=== PATIENT | male | born 1950 | race Caucasian/White ===

== ENCOUNTER 2017-09-26 13:04 | Outpatient (CLI) | payer MEDICARE, BC ==
--- NOTE | 2017-09-26 14:58 | ULT ---
SCROTAL SONOGRAM WITH DUPLEX EVALUATION: HISTORY: Testicular pain after trauma. FINDINGS: The right testicle is 5 cm, and the left is 4.3 cm. Each has a normal appearance with good color and spectral Doppler flow. Minimal increase in the vessels of the left side of the scrotum is apparent without distention upon Valsalva maneuver. IMPRESSION: No significant abnormalities are demonstrated. POS: [facility]
== END 2017-09-26 13:05 | disposition home or self-care (01) ==
LOC: SCSULT 13:04
PROVIDERS: ATTEND Urology
DX: S39.94XA Unspecified injury of external genitals, initial encounter (principal)
CPT/HCPCS: 76870; 93976

== ENCOUNTER 2017-11-01 09:54 | Outpatient (CLI) | payer MEDICARE, BC ==
--- NOTE | 2017-11-01 13:07 | MRI ---
MRI RIGHT ANKLE WITHOUT CONTRAST: HISTORY: S86.0118, rupture of right Achilles tendon. COMPARISON: None. FINDINGS: BONES: No fracture. No malalignment. There is some low-grade edema in the posterior tuberosity of the calc aneus. Small plantar calcaneal spur. LIGAMENTS: AITFL and PITFL are intact. The ATFL is attenuated and likely chronically torn. CFL is intact. Sup erficial and deep deltoid are intact. There is complete rupture of the Achilles tendon 3.8 proximal to the calcaneal insertion. There is s evere tendinosis and interstitial tearing through the proximal and distal fibers. There is a full-th ickness gap of the central 1/3 fibers of the distal Achilles stump. There is a longitudinal split tear of the peroneus brevis at the level of the lateral malleolus. MUSCLES: There is mild edema within the psoas musculature. Mild fatty atrophy throughout the anterior and pos terior compartments as well as lateral compartment. Extensive soft tissue edema. IMPRESSION: 1. Full-thickness rupture of the Achilles tendon 3.5 cm proximal to the calcaneal insertion. There is a gap of approximately 1.5 cm. The proximal stump and distal stump are severe tendinotic. 2. Central delaminating tear of the distal stump of the central 1/3 tendon which is missing. POS: [facility]
== END 2017-11-01 09:55 | disposition home or self-care (01) ==
LOC: TBSIIMAG 09:54
PROVIDERS: ATTEND Family Medicine
DX: S86.011A Strain of right Achilles tendon, initial encounter (principal)

== ENCOUNTER 2018-03-14 10:51 | Outpatient (CLI) | payer MEDICARE, BC ==
[2018-03-14 11:27] LABS: Anion Gap 15 mmol/L (10-20); BUN (Urea Nitrogen) 16 mg/dL (8.4-25.7); Calc. Creatinine Clearance 0 mL/min (70-130); Calcium 9.1 mg/dL (7.8-10.44); Carbon Dioxide 29 mmol/L (23-31); Chloride 105 mmol/L (98-107); Estimated GFR-MDRD 75; Glucose 113 mg/dL (80-115); Potassium 4.5 mmol/L (3.5-5.1); Sodium 144 mmol/L (136-145)
[2018-03-14 11:34] LABS: #Basophils 0.1 thou/uL (0.0-0.2); #Eosinphils 0.1 thou/uL (0.0-0.7); #Lymphocytes 1.5 thou/uL (1.20-3.40); #Monocytes 0.6 thou/uL (0.11-0.59); #Neutrophils 3.4 thou/uL (1.40-6.50); %Eosinophils 1.4 % (0.0-10.0); %Lymphocytes 26.6 % (21.0-51.0); %Monocytes 11.1 % (0.0-10.0); Hemoglobin 14.9 g/dL (14.0-18.0); Mean Corpuscular Hemoglobin 31.3 pg (27.0-31.0); Mean Corpuscular Volume 97.8 fL (78.0-98.0); Mean Platelet Volume 10.5 fL (7.4-10.4); PLT Morphology Comment Appears Decreased; Platelet Count 115 thou/uL (130-400); RBC Distribution Width 14.6 % (11.5-14.5); RBC Morphology Normal; Red Blood Cell (RBC) Count 4.76 mill/uL (4.70-6.10); White Blood Cell (WBC) Count 5.7 thou/uL (4.8-10.8)
[2018-03-14 11:56] LABS: MDiff Complete? YES
--- NOTE | 2018-03-14 12:17 | RAD ---
TWO VIEW CHEST: Indication: Shortness of breath. Comparison: 01-17-17 FINDINGS: Heart is upper normal size. Mild vascular engorgement which appears similar to the prior study. No in filtrate or effusion. IMPRESSION: Heart size is mildly prominent and there is mild vascular engorgement which appears similar to the pr ior study. POS: [facility]
== END 2018-03-14 10:52 | disposition home or self-care (01) ==
LOC: SCSRAD 10:51
PROVIDERS: ATTEND Internal Medicine Cardiovascular Disease
DX: R06.02 Shortness of breath (principal)
CPT/HCPCS: 36415; 71046; 80048; 83880; 85025

== ENCOUNTER 2019-05-22 09:05 | Outpatient (CLI) | payer MEDICARE, BC ==
--- NOTE | 2019-05-22 11:26 | CT ---
CT PULMONARY LUNG SCAN: HISTORY: Nicotine dependence. Current smoker. Shortness of breath. COMPARISON: Chest radiograph March 2018. FINDINGS: Lung screening specific (lung-RADS): Negative. No suspicious pulmonary nodule. BI-RADS category S: Negative. No new or unknown suspicious findings requiring urgent additional evalu ation. Pulmonary incidentals: Scattered sub-4 mm micronodules. No pneumothorax. No effusion. Low-grade bronc hiectasis in lower lobes. Scattered mosaic attenuation likely from chronic small airway disease. Other incidentals: Scattered cardiac coronary arterial stents. Hypoattenuated round focus superior po le left kidney likely a cyst. Multiple bridging anterior osteophytes of the thoracic spine. No acute osseous abnormality. IMPRESSION: 1. Lung RADS category 2: Benign appearance or behavior. Recommend follow-up low dose screening chest CT in 12 months. 2. Lung RADS category S: Negative. No new or unknown suspicious findings requiring urgent additional evaluation. Transcribed Date/Time: 05/22/2019 11:55 AM
== END 2019-05-22 09:06 | disposition home or self-care (01) ==
LOC: CT 09:05
PROVIDERS: ATTEND Family Medicine
DX: F17.210 Nicotine dependence, cigarettes, uncomplicated (principal)
CPT/HCPCS: G0297

== ENCOUNTER 2020-05-15 06:25 | Outpatient (CLI) | payer MEDICARE, BC ==
--- NOTE | 2020-05-15 11:25 | RAD ---
2 VIEWS CHEST: Date: 05/15/2020 COMPARISON: 03/14/2018, 04/21/2020. HISTORY: Preoperative radiograph. FINDINGS: Two views of the chest show an enlarged but stable cardiomediastinal silhouette. There is no evidence of consolidation, mass, or pleural effusion. The bones are unremarkable. IMPRESSION: No evidence of acute cardiopulmonary disease. POS: [facility]
[2020-05-15 12:18] LABS: Hemoglobin 15.2 g/dL (14.0-18.0); Mean Corpuscular HGB CONC 32.3 G/DL (32.0-36.0); Mean Corpuscular Hemoglobin 31.3 PG (27.0-33.0); Mean Corpuscular Volume 96.7 fl (80.0-100.0); Mean Platelet Volume 10.6 fl (7.4-10.4); Platelet Count 132 10x3/uL (130-400); RBC Distribution Width 14.1 % (11.5-14.5); Red Blood Cell (RBC) Count 4.86 10x6/uL (4.40-5.80); White Blood Cell (WBC) Count 5.9 10x3/uL (4.5-11.0)
[2020-05-15 12:19] LABS: Anion Gap 18 mmol/L (10-20); BUN (Urea Nitrogen) 19 mg/dL (8.4-25.7); Calc. Creatinine Clearance 0 mL/min (70-130); Calcium 9.3 mg/dL (7.8-10.44); Carbon Dioxide 28 mmol/L (23-31); Chloride 102 mmol/L (98-107); Glucose 92 mg/dL (80-115); Potassium 4.9 mmol/L (3.5-5.1); Sodium 143 mmol/L (136-145)
[2020-05-15 12:36] LABS: PTT 28.2 sec (22.0-33.0); Prothrombin Time 10.6 sec (9.5-12.1)
[2020-05-15 23:04] LABS: SARS-CoV-2 MS2 Positive; SARS-CoV-2 N Gene Negative; SARS-CoV-2 S Gene Negative; SARS-CoV-2 by NAA Not Detected (NotDetected); SARS-CoV-2 orf1ab Negative
== END 2020-05-15 06:26 | disposition home or self-care (01) ==
LOC: LABBT 06:25
PROVIDERS: ATTEND Thoracic Surgery (Cardiothoracic Vascular Surgery)
DX: Z01.818 Encounter for other preprocedural examination (principal); I25.10 Atherosclerotic heart disease of native coronary artery without angina pectoris; Z20.828 Contact with and (suspected) exposure to other viral communicable diseases
CPT/HCPCS: 71046; 80048; 85027; 85610; 85730; U0003; 87635

== ENCOUNTER 2020-05-15 09:15 | Inpatient (IN) | payer MEDICARE, BC ==
[2020-05-20] MEDS ORDERED: EPINEPHrine 1 MG/ML AMP ONE (06:26)
[2020-05-20] MEDS ORDERED: Albumin 5% 500 ML ONE (06:26)
[2020-05-20] MEDS ORDERED: Bupivacaine PF 0.5% 30 ML VIAL ONE (06:26)
[2020-05-20] MEDS ORDERED: Midazolam HCl 5 mg/5 ml Vial ONE (06:29)
[2020-05-20] MEDS ORDERED: Fentanyl 250 MCG/5 ML VIAL ONE (06:29)
[2020-05-20] MEDS ORDERED: Heparin 10,000 UNITS/1 ML VIAL 30,000 UNITS in Sodium Chloride 0.9% 1,000 ML FS SCH (06:45)
[2020-05-20] MEDS ORDERED: Midazolam HCl 2 mg/2 ml Vial ONE (06:56)
[2020-05-20] MEDS ORDERED: Mannitol 12.5 GM/50 ML ONE (10:26)
[2020-05-20] MEDS ORDERED: Aminocaproic Acid 5 GM/20 ML VIAL ONE (10:26)
[2020-05-20] MEDS ORDERED: PHENYLEPHRINE-NS 100 MCG/ML 10 ML SYRINGE ONE (10:26)
[2020-05-20] MEDS ORDERED: ePHEDrine 50 MG/ML VIAL ONE (10:26)
[2020-05-20] MEDS ORDERED: Magnesium Sulfate 1 GM/2 ML VIAL ONE (10:26)
[2020-05-20] MEDS ORDERED: Potassium Chloride 60 MEQ/30 ML VIAL ONE (10:26)
[2020-05-20] MEDS ORDERED: Heparin 30,000 units/30 ml VIAL ONE (10:26)
[2020-05-20] MEDS ORDERED: Glycopyrrolate 0.2 MG/ML 5 ML SYRINGE ONE (10:26)
[2020-05-20] MEDS ORDERED: Ondansetron PF 4 MG/2 ML Vial ONE (10:26)
[2020-05-20] MEDS ORDERED: Sodium Bicarb 50 MEQ/50 ML Abboject 8.4% SYRINGE ONE (10:26)
[2020-05-20] MEDS ORDERED: Calcium Chloride 1 GM/10 ML Abboject SYRINGE ONE (10:26)
[2020-05-20] MEDS ORDERED: Cardioplegic Soln 1,000 ML BAG ONE (10:26)
[2020-05-20] MEDS ORDERED: Norepinephrine 4 MG/4 ML VIAL ONE (10:26)
[2020-05-20] MEDS ORDERED: Lidocaine 2% PF 100 mg/5 ml Syringe ONE (10:26)
[2020-05-20] MEDS ORDERED: PROPOFOL 200 MG/20 ML VIAL ONE (10:26)
[2020-05-20] MEDS ORDERED: Thrombin 5000 UNITS/5 ML VIAL ONE (10:26)
[2020-05-20] MEDS ORDERED: Heparin 5,000 UNITS/ML VIAL ONE (10:26)
[2020-05-20] MEDS ORDERED: Vecuronium 10 MG VIAL ONE (10:26)
[2020-05-20] MEDS ORDERED: Protamine Sulfate 250 MG/25 ML VIAL ONE (10:26)
[2020-05-20] MEDS ORDERED: Rocuronium Bromide 10 MG/ML (10ML VIAL) ONE (10:26)
[2020-05-20] MEDS ORDERED: Dexamethasone 20 MG/5 ML VIAL ONE (10:26)
[2020-05-20] MEDS ORDERED: Papaverine 60 MG/2 ML VIAL ONE (10:26)
[2020-05-20 11:29] LABS: Actual Bicarbonate (HCO3a) 23.5 mEq/L (22-28); Base Excess (BEa) -3.7 mEq/L (-2.0 to +3.0); CO2 Tension 51.2 mmHg (35.0-45.0); Calcium, Ionized (arterial) 1.22 mmol/L (1.12-1.30); Hemoglobin (Hb) 12.7 g/dL (14.0-18.0); O2 Tension (PaO2), arterial 190.9 mmHg (> 70.0); Potassium - ABG Lab 4.64 mmol/L (3.70-5.30); pH, Arterial 7.28 (7.35-7.45)
[2020-05-20] MEDS ORDERED: Norepinephrine 8 MG/0.9% NS 250 ML IVPB PRN (11:31)
[2020-05-20] MEDS ORDERED: hydrALAZINE 20 MG/ML VIAL SLOW IVP PRN (11:31)
[2020-05-20] MEDS ORDERED: Hetastarch 6% 500 ML 500 ML IVPB PRN (11:31)
[2020-05-20] MEDS ORDERED: Mag-Al 1200 mg/1200 mg/30 ML UDCUP PO PRN (11:31)
[2020-05-20] MEDS ORDERED: Ondansetron PF 4 MG/2 ML Vial IVP PRN (11:31)
[2020-05-20] MEDS ORDERED: Potassium Chloride 20 MEQ/100 ML PREMIX BAG IVPB PRN (11:31)
[2020-05-20] MEDS ORDERED: Bisacodyl 10 MG SUPP PR PRN (11:31)
[2020-05-20] MEDS ORDERED: Post-Op Insulin Drip Protocol IVPB ONE (11:31)
[2020-05-20] MEDS ORDERED: D5 1/2 NS w/20 mEq KCL 1,000 ML IV SCH (11:31)
[2020-05-20] MEDS ORDERED: Bisacodyl 5 MG TAB PO PRN (11:31)
[2020-05-20] MEDS ORDERED: Morphine 2 MG/ML VIAL SLOW IVP PRN (11:31)
[2020-05-20] MEDS ORDERED: Acetaminophen 325 MG TAB PO PRN (11:31)
[2020-05-20] MEDS ORDERED: Magnesium 2 GM/50 ML 2 GM in Premix Bag 1 BAG IVPB SCH (11:31)
[2020-05-20] MEDS ORDERED: Promethazine HCl 25 MG/ML VIAL IM PRN (11:31)
[2020-05-20] MEDS ORDERED: Guaifenesin DM 100-10/5 ML UDCUP PO PRN (11:31)
[2020-05-20] MEDS ORDERED: Fentanyl 100 MCG/2 ML VIAL SLOW IVP PRN (11:31)
[2020-05-20] MEDS ORDERED: Nitroglycerin 50 MG/250 ML BOT 250 ML IVPB PRN (11:31)
--- NOTE | 2020-05-20 11:54 | OP ---
DATE OF PROCEDURE: 05/20/2020 PREOPERATIVE DIAGNOSES: Coronary artery disease/diabetes mellitus/hypercholesterolemia/hypertension/morbid obesity. POSTOPERATIVE DIAGNOSES: Coronary artery disease/diabetes mellitus/hypercholesterolemia/hypertension/morbid obesity. PROCEDURES PERFORMED: Coronary artery bypass grafting x3 - 1. Left internal mammary artery to 1.5 mm mid left anterior descending - good conduit, heavily calcified target. 2. Reverse saphenous vein to 2.5 mm obtuse marginal - good conduit and heavily calcified target. 3. reverse saphenous vein 1.5 mm right coronary artery - good conduit and target. TOOL AND DIE REPAIR: Alok Hill MD ANESTHESIA: General endotracheal, Dr. Mary Gamble. PUMP TIME: 74 minutes. CROSS-CLAMP TIME: 42 minutes. LOW-CORE TEMPERATURE: 34 degrees Celsius. ASSOCIATE DIRECTOR REGULATORY AFFAIRS: Kristi Machado. DRAINS: 24-Armenian chest tubes x2. DRIPS: None. TRANSFUSIONS: None. DESCRIPTION OF PROCEDURE: After consent was obtained, the patient was brought to the operating room, placed in supine position on the operating room table. Appropriate central line and monitors were placed, and general endotracheal anesthesia was induced. Chest, abdomen, and legs were prepped and draped in usual sterile fashion. Greater saphenous vein was harvested from the left lower extremity utilizing an endoscopic technique. Wounds were irrigated and closed in layers. Median sternotomy was performed. Left internal mammary artery was harvested as a pedicle graft. The patient was systemically heparinized. Distal pedicle was divided and infused with papaverine. Thymic fat and pericardium divided with electrocautery. Pericardial stay sutures were placed. Aortic and atrial cannulation was performed. After adequate heparinization, retrograde prime was performed. The patient was placed on cardiopulmonary bypass. Distal targets were marked. Aortic cross-clamp was applied and antegrade sanguineous cardioplegic arrest was obtained. 1 L of antegrade cold [place] cardioplegia was given. Topical cold solution was used. Reverse saphenous vein was anastomosed to distal RCA in end-to-side fashion with running 7-0 Prolene suture. Anastomosis was tested and was hemostatic. Reverse saphenous vein was anastomosed to the OM in an end-to-side fashion with running 7-0 Prolene suture. Anastomosis was tested and was hemostatic. Mammary artery was brought through a window in the pericardium and anastomosed to LAD in an end-to-side fashion with running 7-0 Prolene suture. On release of mammary clamps, good hooding of the anastomosis and good distal flow. Pedicle was secured with interrupted 6-0 Prolene suture. Cross-clamp was removed and partial-occluding clamp placed. Saphenous veins were anastomosed to individual punch sites on the aorta with running 6-0 Prolene suture. Partial-occluding clamp was removed and graft was deaired. Anastomoses were inspected for hemostasis. The OM graft needed stitch for hemostasis. The patient was then warmed and weaned from cardiopulmonary bypass. After resumption of sinus rhythm, good hemodynamics, and temperature greater than 36.5, bypass was discontinued. Transfusion was given. Protamine was then administered. Decannulation was performed and pursestring suture secured. After adequate hemostasis had been obtained in the mediastinum, vancomycin paste was placed on the sternal edges and 24-Armenian chest tubes x2 placed in the mediastinum. The sternum was then closed with #7 wire, 3 in the manubrium and one in the distal sternum. Five zip ties were placed in the body of the sternum. Sternum was treated with platelet-rich plasma. Wires were twisted and buried and zip ties tied and then cut. Wounds were irrigated and treated with platelet-poor plasma and closed in multiple layers. Needle, sponge, and instrument counts were all reported as correct at the end of the procedure. The patient was transferred to the intensive care in stable, critical condition. Job ID: [id number]
[2020-05-20 12:07] LABS: Actual Bicarbonate (HCO3a) 23.6 mEq/L (22-28); Analyzer IN Cardio ER; Base Excess (BEa) -4.9 mEq/L (-2.0 to +3.0); CO2 Tension 58.9 mmHg (35.0-45.0); Calcium, Ionized (arterial) 1.23 mmol/L (1.12-1.30); Carboxyhemoglobin (COHb) 0.7 gm% (0.0-3.0); O2 Tension (PaO2), arterial 84.2 mmHg (> 70.0); Potassium - ABG Lab 4.48 mmol/L (3.70-5.30)
--- NOTE | 2020-05-20 12:08 | RAD ---
EXAM: CHEST ONE VIEW HISTORY: Post open heart surgery COMPARISON: 05/15/2020 FINDINGS: There has been interval postoperative changes related to CABG. Endotracheal tube is noted in place wi th the tip overlying the T3-4 level and appears to be just above the level of the easton. Right subclavian central venous catheter is noted in place with tip overlying the right atrium. Mediastinal drains and left-sided thoracostomy tube are present. Cardiac silhouette is enlarged. There is mild central pulmonary vascular congestion. There is mild widening of the mediastinal structures likely du e to interval postoperative change and accentuation due to portable technique. Mild bibasilar atelectasis is present. No pneumothorax or pleural effusion effusion is appreciated. Hazy density lef t lung base is likely due to overlying soft tissue density. No other interval change. IMPRESSION: 1. Interval postoperative changes related to CABG. 2. Cardiomegaly with mild central pulmonary vascular congestion. 3. Lines and tubes in place. 4. Bibasilar atelectasis.
[2020-05-20 12:12] LABS: Hemoglobin 13.4 g/dL (14.0-18.0); Mean Corpuscular HGB CONC 34.2 g/dL (32.0-36.0); Mean Corpuscular Hemoglobin 33.5 pg (27.0-31.0); RBC Distribution Width 14.1 % (11.5-14.5); Red Blood Cell (RBC) Count 4.01 mill/uL (4.70-6.10); White Blood Cell (WBC) Count 13.8 thou/uL (4.8-10.8)
[2020-05-20] MEDS ORDERED: Albumin 5% 250 ML ONE (12:15)
[2020-05-20] MEDS ORDERED: D5 1/2 NS w/20 mEq KCL 1,000 ML ONE (12:16)
[2020-05-20 12:17] LABS: INR-International Normal Ratio 1.3; PTT 27.5 sec (22.9-36.1); Prothrombin Time 16.5 sec (12.0-14.7)
[2020-05-20] MEDS ORDERED: Dextrose 5% in Water 1,000 ML IV PRN (12:30)
[2020-05-20] MEDS ORDERED: Dextrose 50% Abboject 50 ML SYRINGE SLOW IVP PRN (12:30)
[2020-05-20 12:32] LABS: #Eosinphils 0.1 thou/uL (0.0-0.7); #Lymphocytes 1.9 thou/uL (1.20-3.40); #Neutrophils 10.7 thou/uL (1.40-6.50); %Basophils 0.1 % (0.0-1.0); %Eosinophils 0.6 % (0.0-10.0); %Lymphocytes 14.1 % (21.0-51.0); %Monocytes 7.2 % (0.0-10.0); Mean Platelet Volume 8.2 fL (7.4-10.4); Platelet Count 96 thou/uL (130-400); Platelet Morphology Comment Appears Decreased; RBC Morphology Normal
[2020-05-20] MEDS: Ketorolac Tromethamine 30 MG/ML VIAL IVP SCH ×3 (12:35→23:11)
[2020-05-20 12:36] LABS: Anion Gap 14 mmol/L (10-20); BUN (Urea Nitrogen) 19 mg/dL (8.4-25.7); Calc. Creatinine Clearance 137 mL/min (70-130); Calcium 8.5 mg/dL (7.8-10.44); Carbon Dioxide 23 mmol/L (23-31); Chloride 108 mmol/L (98-107); Glucose 171 mg/dL (80-115); Potassium 4.6 mmol/L (3.5-5.1); Sodium 140 mmol/L (136-145)
[2020-05-20] MEDS: HUMULIN R 100 UNITS in Sodium Chloride 0.9% 100 ML IVPB SCH ×2 (13:53→23:14)
[2020-05-20 15:36] LABS: Actual Bicarbonate (HCO3a) 24.9 mEq/L (22-28); Base Excess (BEa) -3.2 mEq/L (-2.0 to +3.0); CO2 Tension 57.9 mmHg (35.0-45.0); Calcium, Ionized (arterial) 1.19 mmol/L (1.12-1.30); Carboxyhemoglobin (COHb) 1.3 gm% (0.0-3.0); Hemoglobin (Hb) 13.7 g/dL (14.0-18.0); Potassium - ABG Lab 4.55 mmol/L (3.70-5.30); pH, Arterial 7.25 (7.35-7.45)
[2020-05-20 15:37] LABS: ALV-art Gradient 144.825 mmHg (0-20)
[2020-05-20 15:41] LABS: ALV-art Gradient 269.975 mmHg (0-20); Puncture Site Arterial Line; pH, Arterial 7.22 (7.35-7.45)
[2020-05-20] MEDS: Pregabalin 50 MG CAP PO SCH ×2 (16:06→20:18)
[2020-05-20] MEDS: CEFAZOLIN 2 GM in Premix Bag 1 BAG IVPB SCH ×2 (16:11→23:11)
[2020-05-20 17:46] LABS: Hemoglobin 13.7 g/dL (14.0-18.0)
[2020-05-20 17:55] LABS: Potassium 4.6 mmol/L (3.5-5.1)
[2020-05-20 19:22] LABS: Actual Bicarbonate (HCO3a) 20.4 mEq/L (22-28); Base Excess (BEa) -3.6 mEq/L (-2.0 to +3.0); CO2 Tension 33.7 mmHg (35.0-45.0); Calcium, Ionized (arterial) 1.13 mmol/L (1.12-1.30); Carboxyhemoglobin (COHb) 0.9 gm% (0.0-3.0); Hemoglobin (Hb) 13.5 g/dL (14.0-18.0); O2 Tension (PaO2), arterial 85.7 mmHg (> 70.0); Potassium - ABG Lab 4.26 mmol/L (3.70-5.30)
[2020-05-20 19:25] LABS: ALV-art Gradient 157.375 mmHg (0-20); Puncture Site Arterial Line
[2020-05-20] MEDS: Famotidine/PF 20 mg/2ml Vial SLOW IVP SCH (20:18)
[2020-05-20] MEDS: Fentanyl 100 MCG/2 ML VIAL SLOW IVP PRN (22:30)
[2020-05-21] MEDS: Fentanyl 100 MCG/2 ML VIAL SLOW IVP PRN (03:17)
[2020-05-21 05:18] LABS: #Lymphocytes 0.8 thou/uL (1.20-3.40); #Monocytes 1.3 thou/uL (0.11-0.59); #Neutrophils 10.8 thou/uL (1.40-6.50); %Eosinophils 0.1 % (0.0-10.0); %Lymphocytes 6.5 % (21.0-51.0); %Neutrophils 83.4 % (42.0-75.0); Hemoglobin 13.6 g/dL (14.0-18.0); Mean Corpuscular HGB CONC 33.2 g/dL (32.0-36.0); Mean Corpuscular Hemoglobin 33.2 pg (27.0-31.0); Mean Corpuscular Volume 99.9 fL (78.0-98.0); Mean Platelet Volume 8.9 fL (7.4-10.4); Platelet Count 109 thou/uL (130-400); RBC Distribution Width 14.3 % (11.5-14.5); Red Blood Cell (RBC) Count 4.11 mill/uL (4.70-6.10); White Blood Cell (WBC) Count 12.9 thou/uL (4.8-10.8)
[2020-05-21 05:23] LABS: Anion Gap 15 mmol/L (10-20); BUN (Urea Nitrogen) 24 mg/dL (8.4-25.7); Calc. Creatinine Clearance 120 mL/min (70-130); Carbon Dioxide 22 mmol/L (23-31); Chloride 108 mmol/L (98-107); Glucose 124 mg/dL (80-115); Sodium 140 mmol/L (136-145)
[2020-05-21] MEDS: Ketorolac Tromethamine 30 MG/ML VIAL IVP SCH ×3 (05:25→17:32)
[2020-05-21] MEDS: Pregabalin 50 MG CAP PO SCH ×3 (07:43→21:46)
[2020-05-21] MEDS: CEFAZOLIN 2 GM in Premix Bag 1 BAG IVPB SCH (07:55)
[2020-05-21] MEDS: Famotidine/PF 20 mg/2ml Vial SLOW IVP SCH ×3 (07:57→21:49)
[2020-05-21] MEDS: Fish Oil 1,000 MG CAP PO SCH ×2 (07:59→08:00)
[2020-05-21] MEDS: Magnesium 2 GM/50 ML 2 GM in Premix Bag 1 BAG IVPB SCH (08:02)
--- NOTE | 2020-05-21 08:13 | RAD ---
EXAM: Single view of the chest HISTORY: Status post open heart surgery COMPARISON: 05/20/2020 FINDINGS: Single view of the chest shows an enlarged but stable cardiomediastinal silhouette. The pa tient is status post sternotomy. The endotracheal tube is been removed. The central venous catheter is unchanged in position. Opacity is seen in the left lung base which may represent a pleural effusi on and adjacent atelectasis versus infiltrate. Degenerative changes are seen in the spine. IMPRESSION: Small left pleural effusion with adjacent atelectasis versus infiltrate.
[2020-05-21] MEDS: Aspirin 325 MG TAB PO SCH (08:20)
[2020-05-21] MEDS ORDERED: FLU VACC QS2020-21(65YR UP)/PF 240 MCG/0.7 ML SYRINGE IM ONE (09:00)
[2020-05-21] MEDS: HYDROcodone/Acetaminophen 5/325 mg Tablet PO PRN ×2 (11:33→17:33)
[2020-05-21] MEDS ORDERED: Furosemide 40 MG/4 ML VIAL SLOW IVP SCH (15:15)
[2020-05-22] MEDS: Ketorolac Tromethamine 30 MG/ML VIAL IVP SCH ×2 (00:42→05:35)
[2020-05-22] MEDS: HYDROcodone/Acetaminophen 5/325 mg Tablet PO PRN ×3 (03:47→17:03)
[2020-05-22 04:48] LABS: #Monocytes 1.2 thou/uL (0.11-0.59); #Neutrophils 8.9 thou/uL (1.40-6.50); %Basophils 0.1 % (0.0-1.0); %Eosinophils 0.3 % (0.0-10.0); %Lymphocytes 8.6 % (21.0-51.0); %Monocytes 11.1 % (0.0-10.0); %Neutrophils 79.9 % (42.0-75.0); Hemoglobin 12.3 g/dL (14.0-18.0); Mean Corpuscular HGB CONC 33.3 g/dL (32.0-36.0); Mean Corpuscular Hemoglobin 33.2 pg (27.0-31.0); Mean Corpuscular Volume 99.8 fL (78.0-98.0); Mean Platelet Volume 8.7 fL (7.4-10.4); Platelet Count 96 thou/uL (130-400); RBC Distribution Width 14.5 % (11.5-14.5); White Blood Cell (WBC) Count 11.1 thou/uL (4.8-10.8)
[2020-05-22 04:54] LABS: Anion Gap 12 mmol/L (10-20); BUN (Urea Nitrogen) 31 mg/dL (8.4-25.7); Calc. Creatinine Clearance 0 mL/min (70-130); Carbon Dioxide 27 mmol/L (23-31); Chloride 101 mmol/L (98-107); Glucose 131 mg/dL (80-115); Sodium 135 mmol/L (136-145)
[2020-05-22] MEDS ORDERED: diphenhydrAMINE 25 MG CAP PO PRN (08:15)
[2020-05-22] MEDS ORDERED: Milk Of Magnesia 30 ML UDCUP PO PRN (08:15)
[2020-05-22] MEDS ORDERED: Bisacodyl 5 MG TAB PO PRN (08:15)
[2020-05-22] MEDS ORDERED: Nitroglycerin 0.4 MG TAB (25 Tab Bottle) SL PRN (08:15)
[2020-05-22] MEDS ORDERED: Bisacodyl 10 MG SUPP PR PRN (08:15)
[2020-05-22] MEDS ORDERED: Guaifenesin DM 100-10/5 ML UDCUP PO PRN (08:15)
[2020-05-22] MEDS ORDERED: Mineral Oil ENEMA PR PRN (08:15)
[2020-05-22] MEDS ORDERED: Mag-Al 1200 mg/1200 mg/30 ML UDCUP PO PRN (08:15)
[2020-05-22] MEDS ORDERED: Zolpidem Tartrate 5 MG TAB PO PRN (08:15)
[2020-05-22] MEDS: Pregabalin 50 MG CAP PO SCH ×3 (08:32→20:50)
[2020-05-22] MEDS: Aspirin 325 MG TAB PO SCH (08:37)
[2020-05-22] MEDS: Fish Oil 1,000 MG CAP PO SCH (08:37)
[2020-05-22] MEDS: Magnesium 2 GM/50 ML 2 GM in Premix Bag 1 BAG IVPB SCH (08:39)
--- NOTE | 2020-05-22 09:17 | RAD ---
PORTABLE CHEST: HISTORY: Postop sternotomy followup. CCU followup. COMPARISON: 05/21/2020. FINDINGS/IMPRESSION: Cardiomegaly with sternotomy changes. Central line overlies the SVC. Mild vascular congestion. No confluent infiltrate or significant effusion. No acute interval change noted. POS: [facility]
[2020-05-22] MEDS: Furosemide 40 MG TAB PO SCH (10:15)
[2020-05-22] MEDS: Insulin Regular 300 UNITS/3 ML VIAL SC PRN ×2 (11:47→17:37)
[2020-05-22] MEDS: Diltiazem HCl 125 MG, Admixture Fee 1 EACH in Sodium Chloride 0.9% 100 ML IVPB SCH (20:44)
[2020-05-23 04:17] LABS: Anion Gap 12 mmol/L (10-20); BUN (Urea Nitrogen) 32 mg/dL (8.4-25.7); Calc. Creatinine Clearance 0 mL/min (70-130); Calcium 8.5 mg/dL (7.8-10.44); Carbon Dioxide 28 mmol/L (23-31); Chloride 101 mmol/L (98-107); Glucose 160 mg/dL (80-115); Potassium 5.3 mmol/L (3.5-5.1); Sodium 136 mmol/L (136-145)
[2020-05-23] MEDS: HYDROcodone/Acetaminophen 5/325 mg Tablet PO PRN ×2 (05:20→22:21)
[2020-05-23] MEDS: Insulin Regular 300 UNITS/3 ML VIAL SC PRN ×4 (05:57→22:20)
[2020-05-23] MEDS ORDERED: Digoxin 0.5 MG/2 ML AMP SLOW IVP SCH ×3 (07:15→22:00)
[2020-05-23] MEDS: Aspirin 325 MG TAB PO SCH (07:50)
[2020-05-23] MEDS: Fish Oil 1,000 MG CAP PO SCH (07:50)
[2020-05-23] MEDS: Diltiazem HCl 125 MG, Admixture Fee 1 EACH in Sodium Chloride 0.9% 100 ML IVPB SCH (07:50)
[2020-05-23] MEDS: Furosemide 40 MG TAB PO SCH (07:51)
[2020-05-23] MEDS: Pregabalin 50 MG CAP PO SCH ×3 (08:00→22:23)
[2020-05-23] MEDS: Enoxaparin Sodium 40 MG/0.4 ML SYRINGE SC SCH (09:51)
[2020-05-23] MEDS ORDERED: Amiodarone 150 MG, Admixture Fee 1 EACH in Dextrose 5% in Water 100 ML IVPB SCH (10:30)
[2020-05-23] MEDS: Amiodarone 450 MG, Admixture Fee 1 EACH in Dextrose 5% in Water 250 ML IVPB SCH (10:31)
[2020-05-24 05:24] LABS: Anion Gap 15 mmol/L (10-20); BUN (Urea Nitrogen) 34 mg/dL (8.4-25.7); Calc. Creatinine Clearance 113 mL/min (70-130); Calcium 8.5 mg/dL (7.8-10.44); Carbon Dioxide 27 mmol/L (23-31); Chloride 102 mmol/L (98-107); Glucose 136 mg/dL (80-115); Sodium 139 mmol/L (136-145)
[2020-05-24] MEDS: Insulin Regular 300 UNITS/3 ML VIAL SC PRN ×2 (06:09→11:29)
[2020-05-24] MEDS: HYDROcodone/Acetaminophen 5/325 mg Tablet PO PRN ×2 (06:36→20:53)
[2020-05-24] MEDS: Pregabalin 50 MG CAP PO SCH ×3 (08:03→20:54)
[2020-05-24] MEDS: Fish Oil 1,000 MG CAP PO SCH (08:03)
[2020-05-24] MEDS: Enoxaparin Sodium 40 MG/0.4 ML SYRINGE SC SCH (08:03)
[2020-05-24] MEDS: Aspirin 325 MG TAB PO SCH (08:03)
[2020-05-24] MEDS: Furosemide 40 MG TAB PO SCH (08:03)
[2020-05-24] MEDS: Metoprolol Tartrate 25 MG TAB PO SCH ×2 (08:03→20:54)
[2020-05-25] MEDS: Enoxaparin Sodium 40 MG/0.4 ML SYRINGE SC SCH (08:11)
[2020-05-25] MEDS: Pregabalin 50 MG CAP PO SCH ×3 (08:11→21:14)
[2020-05-25] MEDS: Metoprolol Tartrate 25 MG TAB PO SCH ×2 (08:11→21:16)
[2020-05-25] MEDS: Aspirin 325 MG TAB PO SCH (08:11)
[2020-05-25] MEDS: Furosemide 40 MG TAB PO SCH (08:11)
[2020-05-25] MEDS: Fish Oil 1,000 MG CAP PO SCH (08:11)
--- NOTE | 2020-05-25 11:37 | CON ---
DATE OF CONSULTATION: REQUESTING PHYSICIAN: Candelario Blum MD REASON FOR CONSULTATION: Atrial fibrillation and flutter. HISTORY OF PRESENT ILLNESS: This is a 69-year-old gentleman with history of morbid obesity, hypertension, hypercholesterolemia, as well as diabetes, who had coronary artery bypass graft surgery earlier on the May 20. On the May 22, he was noted to go into atrial fibrillation with an occasional periods of organization to atrial flutter. He has been treated with amiodarone. He is not having oral anticoagulation at this point. We are asked to see him for evaluation. PAST MEDICAL HISTORY: As above. Coronary artery disease, hypertension, diabetes, obesity, and hypercholesterolemia. CURRENT MEDICATIONS: 1. Sayre. 2. Acetaminophen. 3. Amiodarone. 4. Aspirin. 5. Furosemide. 6. Hydralazine. 7. Pantoprazole. ALLERGIES: HE HAS ALLERGIES TO SIMVASTATIN, ROSUVASTATIN, PRAVASTATIN, AND VYTORIN. REVIEW OF SYSTEMS: Comprehensive review of systems is otherwise unremarkable. In particular, he has no fevers; chills; nausea; vomiting; diarrhea; change in hearing, taste, vision, or smell; abdominal discomfort, chest discomfort; ataxia; depression; and anxiety. PHYSICAL EXAMINATION: GENERAL: He is sitting in no acute distress. VITAL SIGNS: Blood pressure is 113/60 and heart rate is 76 and irregular. NECK: Reveals no increased JVD. HEART: Irregularly irregular. Normal S1 and S2. LUNGS: Clear to auscultation. ABDOMEN: Soft and nontender. EXTREMITIES: No clubbing or cyanosis. He does appear to have some edema. LABORATORY DATA: Hematocrit is 39 and his creatinine is 1.28. IMPRESSION: Postop atrial fibrillation and flutter, treated with amiodarone. RECOMMENDATIONS: Mr. Garcia has postop atrial fibrillation and flutter. He has an elevated CHADS-VASc score. At this point, he has been in this arrhythmia for greater than 48 hours. Given his elevated CHADS-VASc score, we would recommend oral anticoagulant therapy at least in the short to medium term. This may simply be postop atrial fibrillation, which may resolve over some time of treatment with amiodarone. If it does not resolve with amiodarone, then cardioversion would be reasonable. Radiofrequency ablation to target his atrial flutter may be helpful; however, he will be left with atrial fibrillation. He will need a JELENA prior to that type of procedure. My recommendations at the current time would be to treat him with amiodarone as you are doing. We will initiate oral anticoagulant therapy. If he needs a cardioversion, it can be after three weeks of anticoagulant therapy or after JELENA. If he continues to have atrial arrhythmias, after he has recovered from his bypass surgery, then radiofrequency ablation of course be fairly reasonable for him. Job ID: [id number]
[2020-05-25] MEDS: Amiodarone 450 MG, Admixture Fee 1 EACH in Dextrose 5% in Water 250 ML IVPB SCH (16:30)
[2020-05-25] MEDS: HYDROcodone/Acetaminophen 5/325 mg Tablet PO PRN ×2 (16:36→21:16)
--- NOTE | 2020-05-25 18:44 | EKG ---
Test Reason : STAT Blood Pressure : / mmHG Vent. Rate : 139 BPM Atrial Rate : 139 BPM P-R Int : 176 ms QRS Dur : 080 ms QT Int : 296 ms P-R-T Axes : 000 060 237 degrees QTc Int : 450 ms Sinus tachycardia Abnormal ECG When compared with ECG of 20-MAY-2020 12:11, (Unconfirmed) Vent. rate has increased BY 68 BPM Minimal criteria for Inferior infarct are no longer Present T wave inversion now evident in Inferior leads Nonspecific T wave abnormality no longer evident in Anterior leads Confirmed by TESSA NELSON, DR. Oneal ([id number]) on 05/25/2020 6:44:20 PM Referred By: GEOFFREY Confirmed By:DR. Jm ZARATE MD
[2020-05-26] MEDS: Amiodarone 200 MG TAB PO SCH ×2 (09:14→21:49)
[2020-05-26] MEDS: Fish Oil 1,000 MG CAP PO SCH (09:14)
[2020-05-26] MEDS: Pregabalin 50 MG CAP PO SCH ×3 (09:15→21:48)
[2020-05-26] MEDS: Aspirin 325 MG TAB PO SCH (09:16)
[2020-05-26] MEDS: Metoprolol Tartrate 25 MG TAB PO SCH ×2 (09:16→21:50)
[2020-05-26] MEDS: Apixaban 5 MG TAB PO SCH ×2 (09:16→21:50)
[2020-05-26] MEDS: Furosemide 40 MG TAB PO SCH (09:16)
[2020-05-26] MEDS: Amiodarone 450 MG, Admixture Fee 1 EACH in Dextrose 5% in Water 250 ML IVPB SCH (09:17)
[2020-05-26] MEDS: HYDROcodone/Acetaminophen 5/325 mg Tablet PO PRN ×3 (09:20→21:57)
--- NOTE | 2020-05-26 11:23 | PDOC.EP ---
- Subjective Date: 05/26/20 Time: 11:21 Interval History: feels fair. pain is better controlled this AM after oral pain meds. He is encouraged. - Review of Systems Constitutional: reports: weakness. denies: chills, fever, malaise Respiratory: reports: shortness of breath. denies: cough, dry, hemoptysis, pleuritic pain, sputum, wheezing Cardiology: reports: chest pain (post op). denies: edema, heart racing, light headedness, orthopnea, palpitations, passing out Gastrointestinal: denies: abdominal pain, constipation, diarrhea Musculoskeletal: denies: unstable gait, falls, neck pain - Objective Allergies/Adverse Reactions: Allergies Allergy/AdvReac Type Severity Reaction Status Date / Time ezetimibe [From Vytorin] Allergy Verified 05/20/20 16:38 pravastatin Allergy Verified 05/20/20 16:38 rosuvastatin calcium Allergy Verified 05/20/20 16:38 [From Crestor] simvastatin [From Vytorin] Allergy Verified 05/20/20 16:38 Current Medications Acetaminophen (Acetaminophen 325 Mg Tab) 650 mg PO Q6H PRN PRN Reason: Headache/Fever Or Mild Pain Hydrocodone Bitart/Acetaminophen (Hydrocodone/Acetaminophen 5/325 Mg Tablet) 1 tab PO Q4H PRN PRN Reason: Moderate Pain (4-6) Last Admin: 05/24/20 06:36 Dose: 1 tab Documented by: Hydrocodone Bitart/Acetaminophen (Hydrocodone/Acetaminophen 5/325 Mg Tablet) 2 tab PO Q4H PRN PRN Reason: Severe Pain (7-10) Last Admin: 05/26/20 09:20 Dose: 2 tab Documented by: Al Hydroxide/Mg Hydroxide (Mag-Al 1200 Mg/1200 Mg/30 Ml Udcup) 30 ml PO Q4H PRN PRN Reason: Indigestion Albuterol/Ipratropium (Ipratropium/Albuterol Sulfate 3 Ml Neb) 3 ml NEB [id number] [facility] Last Admin: 05/26/20 07:26 Dose: Not Given Documented by: Amiodarone HCl (Amiodarone 200 Mg Tab) 400 mg PO BID [facility] Last Admin: 05/26/20 09:14 Dose: 400 mg Documented by: Apixaban (Apixaban 5 Mg Tab) 5 mg PO BID [facility] Last Admin: 05/26/20 09:16 Dose: 5 mg Documented by: Aspirin (Aspirin 325 Mg Tab) 325 mg PO DAILY [facility] Last Admin: 05/26/20 09:16 Dose: 325 mg Documented by: Bisacodyl (Bisacodyl 5 Mg Tab) 10 mg PO Q12H PRN PRN Reason: Constipation Bisacodyl (Bisacodyl 10 Mg Supp) 10 mg OK Q12H PRN PRN Reason: Constipation Dextrose/Water (Dextrose 50% Abboject 50 Ml Syringe) 25 gm SLOW IVP PRN PRN PRN Reason: PER HYPOGLYCEMIC PROTOCOL Diphenhydramine HCl (Diphenhydramine 25 Mg Cap) 25 mg PO Q6H PRN PRN Reason: Itching & Insomnia or Dale Medardo Fish Oil (Fish Oil 1,000 Mg Cap) 1,000 mg PO DAILY [facility] Last Admin: 05/26/20 09:14 Dose: 1,000 mg Documented by: Furosemide (Furosemide 40 Mg Tab) 40 mg PO DAILY [facility] Last Admin: 05/26/20 09:16 Dose: 40 mg Documented by: Glucagon (Glucagon 1 Mg/Ml Vial) 1 mg SC PRN PRN PRN Reason: PER HYPOGLYCEMIC PROTOCOL Guaifenesin/Dextromethorphan (Guaifenesin Dm 100-10/5 Ml Udcup) 15 ml PO Q4H PRN PRN Reason: Cough Hydralazine HCl (Hydralazine 20 Mg/Ml Vial) 10 mg SLOW IVP Q6H PRN PRN Reason: To Maintain SBP< 140mmHG Dextrose/Water (D5w) 1,000 mls @ 0 mls/hr IV INF PRN PRN Reason: PRN HYPOGLYCEMIC PROTOCOL Amiodarone HCl 450 mg/Miscellaneous Medication 1 each/ Dextrose/Water 259 mls @ 0 mls/hr IVPB INF [facility]; Protocol Stop: 05/26/20 12:00 Last Admin: 05/26/20 09:17 Dose: 259 mls Documented by: Magnesium Hydroxide (Milk Of Magnesia 30 Ml Udcup) 30 ml PO Q12H PRN PRN Reason: Constipation Metoprolol Tartrate (Metoprolol Tartrate 25 Mg Tab) 25 mg PO BID [facility] Last Admin: 05/26/20 09:16 Dose: 25 mg Documented by: Mineral Oil (Mineral Oil Enema) 133 ml OK DAILYPRN PRN PRN Reason: Constipation Nitroglycerin (Nitroglycerin 0.4 Mg Tab (25 Tab Bottle)) 0.4 mg SL Q5MIN PRN PRN Reason: Chest Pain Ondansetron HCl (Ondansetron Pf 4 Mg/2 Ml Vial) 4 mg IVP Q6H PRN PRN Reason: Nausea/Vomiting Pantoprazole Sodium (Pantoprazole 40 Mg Tab) 40 mg PO DAILY [facility] Last Admin: 05/26/20 09:16 Dose: 40 mg Documented by: Pregabalin (Pregabalin 50 Mg Cap) 200 mg PO TID [facility] Last Admin: 05/26/20 09:15 Dose: 200 mg Documented by: Sodium Chloride (Flush - Normal Saline 10 Ml Syringe) 10 ml IVF PRN PRN PRN Reason: Saline Flush Last Admin: 05/24/20 08:03 Dose: 10 ml Documented by: Zolpidem Tartrate (Zolpidem Tartrate 5 Mg Tab) 5 mg PO HSPRN PRN PRN Reason: Insomnia Vital Signs & Weight: Vital Signs Temp Pulse Resp BP BP Pulse Ox 05/26/20 08:00 97.4 F L 76 17 103/57 L 96 05/26/20 07:26 93 L 05/26/20 04:00 97.2 F L 50 L 20 127/63 93 L 05/26/20 00:00 73 99/57 L Weight 323 lb 11.2 oz I/O: I/O 05/25/20 05/26/20 05/27/20 06:59 06:59 06:59 Intake Total 1720 970 Output Total 500 Balance 1220 970 - Quality Measures Condition: Atrial Fibrillation/Flutter (hx or current) CV meds: Eliquis: Yes - Physical Exam General: alert & oriented x3, no apparent distress, speech clear, affect appropriate HEENT: mucus membranes moist, normocephaly, EOMI Neck: supple neck, midline trachea, no JVD/HJR Cardiology: regular rate, irregularly irregular Lungs: clear to auscultation, normal breath sounds, decreased breath sounds Neurology: cranial nerve 2-12 intact, grossly intact, coordination normal Abdomen: unremarkable, active bowel sounds, HJR negative - Chadsvasc Risk factors Age 65-74: 1 Diabetes mellitus: 1 Vascular disease: 1 Risk Score: 3 - Labs Result Diagrams: 05/22/20 03:40 05/24/20 04:45 - EKG Interpretation EKG Method: Telemetry EKG shows: Atrial fibrillation, Atypical atrial flutter - Assessment/Plan Assessment/Plan: 1. Atrial arrhythmias post op - a fib and likely atypical atrial flutter - adequately rate controlled - switching from IV amiodarone to PO taper today - started eliquis 05/26 0900- no overt bleeding so far - onset 05/22 ~1899 2. CAD -s/p 3V CABG Agree with oral amiodarone taper- goal 200mg daily in 3-4 weeks. Asymptomatic with rate controlled AF, no further RVR. Recommend CV after 3 weeks OAC. JELENA/CV could be considered if sympomatic and difficult to manage medically. Plan for short term amiodarone ~3 months post CABG but he does have multiple risk factors for this becoming a persisting arrhythmia issue. He needs to lose a significant amount of weight. His primary cardiology will likely wish to do the OP CV (Dr. Kinney). We will see him back as OP as well.
--- NOTE | 2020-05-27 06:34 | DIS ---
DATE OF ADMISSION: 05/20/2020 DATE OF DISCHARGE: 05/27/2020 DIAGNOSES: 1. Morbid obesity. 2. Coronary artery disease. 3. Hypertension. 4. Dyslipidemia. 5. Postoperative atrial fibrillation/flutter. PROCEDURES: Coronary artery bypass grafting x3: 1. Left internal mammary artery to LAD. 2. Reverse saphenous vein to OM. 3. Reverse saphenous vein to distal right coronary. DESCRIPTION OF HOSPITAL STAY: Mr. Garcia was brought into the hospital for elective coronary artery bypass grafting. Postoperatively, he did well. He had gone into atrial fibrillation/flutter, which has been managed with amiodarone, and he is anticoagulated on Eliquis. He was seen by Electrophysiology, which suggested a month of treatment and cardioversion after that if he was not converted yet. Otherwise, he has done well. He has been slow to mobilize due to his size, but has been up walking. At the time of discharge, he is ambulatory, tolerating regular diet, having good bowel and bladder function. Incisions are clean, dry without evidence of infection. DISCHARGE MEDICATIONS: 1. Aspirin 81 mg daily. 2. Finasteride 5 mg at bedtime. 3. Fish oil 1000 mg daily. 4. CoQ10 200 mg daily. 5. Lyrica 200 mg t.i.d. 6. Metformin 500 mg b.i.d. 7. Amiodarone 400 mg b.i.d. 8. Eliquis 5 mg b.i.d. 9. Lasix 40 mg daily. 10. Lopressor 25 mg b.i.d. 11. Daisy 5/325 1 to 2 q.6 hours p.r.n. pain. FOLLOWUP: With me in 2 weeks and in a month. He has also been set up with cardiac rehab as an outpatient. Job ID: [id number]
[2020-05-27] MEDS: Fish Oil 1,000 MG CAP PO SCH (08:05)
[2020-05-27] MEDS: Metoprolol Tartrate 25 MG TAB PO SCH (08:05)
[2020-05-27] MEDS: Aspirin 325 MG TAB PO SCH (08:05)
[2020-05-27] MEDS: Pregabalin 50 MG CAP PO SCH (08:06)
[2020-05-27] MEDS: Apixaban 5 MG TAB PO SCH (08:06)
[2020-05-27] MEDS: Amiodarone 200 MG TAB PO SCH (08:06)
[2020-05-27] MEDS: Furosemide 40 MG TAB PO SCH (08:06)
[2020-05-27] MEDS: HYDROcodone/Acetaminophen 5/325 mg Tablet PO PRN (08:07)
[2020-05-27 09:11] VITALS: BP 107/61; TEMP 96.9
== END 2020-05-27 11:51 | disposition home or self-care (01) | DRG 236 ==
LOC: SURG A 05-20 06:09 → CCU 05-20 11:52 → 2NO 05-22 11:58
PROVIDERS: ADMIT Thoracic Surgery (Cardiothoracic Vascular Surgery); ATTEND Thoracic Surgery (Cardiothoracic Vascular Surgery)
PROC: 02100Z9 Bypass Coronary Artery, One Artery from Left Internal Mammary, Open Approach (ICD-10-PCS; principal; 2020-05-20)
PROC: 021109W Bypass Coronary Artery, Two Arteries from Aorta with Autologous Venous Tissue, Open Approach (ICD-10-PCS; 2020-05-20)
PROC: 06BQ4ZZ Excision of Left Saphenous Vein, Percutaneous Endoscopic Approach (ICD-10-PCS; 2020-05-20)
PROC: 5A1221Z Performance of Cardiac Output, Continuous (ICD-10-PCS; 2020-05-20)
DX: I25.10 Atherosclerotic heart disease of native coronary artery without angina pectoris (principal); Z68.41 Body mass index [BMI] 40.0-44.9, adult; I48.92 Unspecified atrial flutter; E78.5 Hyperlipidemia, unspecified; E11.9 Type 2 diabetes mellitus without complications; I10 Essential (primary) hypertension; E66.01 Morbid (severe) obesity due to excess calories; I48.91 Unspecified atrial fibrillation; Z95.5 Presence of coronary angioplasty implant and graft; Z88.8 Allergy status to other drugs, medicaments and biological substances
CPT/HCPCS: 36415; 36416; 36430; 71045; 80048; 82805; 82947; 85025; 85610; 85730; 86850; 86900; 86901; 93005; 93010; 93798; 94002; 94640; 97139; J0171; J0282; J0690; J1100; J1160; J1642; J1644; J1650; J1815; J1885; J1940; J2001; J2150; J2250; J2405; J2440; J2704; J2720; J3010; J3370; J3475; J3480; J3490; J7070; J7620; P9045; S0017; S0020; S0028

== ENCOUNTER 2020-10-06 15:00 | Outpatient (CLI) | payer MEDICARE, BC ==
[2020-10-06 16:58] LABS: Hemoglobin 9.6 g/dL (13.5-17.5); INR-International Normal Ratio 1.2; Mean Corpuscular HGB CONC 28.8 g/dL (32.0-36.0); Mean Corpuscular Hemoglobin 25.1 pg (27.0-33.0); Mean Corpuscular Volume 87.2 fl (81.2-95.1); Mean Platelet Volume 10.9 fl (7.4-10.4); PTT 27.9 sec (22.0-33.0); Platelet Count 122 10x3/uL (150-450); Prothrombin Time 12.7 sec (9.5-12.1); RBC Distribution Width 18.1 % (11.5-14.5); Red Blood Cell (RBC) Count 3.82 10x6/uL (4.32-5.72); White Blood Cell (WBC) Count 4.1 10x3/uL (3.5-10.5)
[2020-10-06 17:01] LABS: Anion Gap 14 mmol/L (10-20); BUN (Urea Nitrogen) 26 mg/dL (8.4-25.7); Calc. Creatinine Clearance 0 mL/min (70-130); Calcium 8.8 mg/dL (7.8-10.44); Carbon Dioxide 36 mmol/L (23-31); Chloride 96 mmol/L (98-107); Glucose 113 mg/dL (80-115); Sodium 142 mmol/L (136-145)
[2020-10-07 01:16] LABS: SARS-CoV-2 PCR by NAA Not Detected (NotDetected)
== END 2020-10-06 15:01 | disposition home or self-care (01) ==
LOC: LABBT 15:00
PROVIDERS: ATTEND Internal Medicine Cardiovascular Disease
DX: Z01.818 Encounter for other preprocedural examination (principal); I48.91 Unspecified atrial fibrillation; Z20.822 Contact with and (suspected) exposure to COVID-19
CPT/HCPCS: 80048; 85027; 85610; 85730; 93005; U0003; U0005; 87635; 93010

== ENCOUNTER 2020-10-09 08:39 | Day surgery (SDC) | payer MEDICARE, BC ==
[2020-10-08 12:54] VITALS: BMI 38.5
[2020-10-09] MEDS ORDERED: PROPOFOL 0 ML ONE (10:46)
[2020-10-09] MEDS ORDERED: PROPOFOL 20 ML ONE (10:47)
== END 2020-10-09 12:30 | disposition home or self-care (01) ==
LOC: CCL 08:39
PROVIDERS: ATTEND Internal Medicine Cardiovascular Disease
PROC: 5A2204Z Restoration of Cardiac Rhythm, Single (ICD-10-PCS; principal; 2020-10-09)
DX: I48.19 Other persistent atrial fibrillation (principal); I25.10 Atherosclerotic heart disease of native coronary artery without angina pectoris; J44.9 Chronic obstructive pulmonary disease, unspecified; E11.9 Type 2 diabetes mellitus without complications; I11.0 Hypertensive heart disease with heart failure; I50.30 Unspecified diastolic (congestive) heart failure; E78.5 Hyperlipidemia, unspecified; G47.30 Sleep apnea, unspecified; E66.01 Morbid (severe) obesity due to excess calories; Z68.37 Body mass index [BMI] 37.0-37.9, adult; Z87.891 Personal history of nicotine dependence; Z79.01 Long term (current) use of anticoagulants; Z79.82 Long term (current) use of aspirin; Z79.899 Other long term (current) drug therapy; Z88.8 Allergy status to other drugs, medicaments and biological substances; Z95.1 Presence of aortocoronary bypass graft; Z95.5 Presence of coronary angioplasty implant and graft
CPT/HCPCS: 92960; 93005; 93010; J2704

== ENCOUNTER 2020-10-28 11:31 | Outpatient (CLI) | payer MEDICARE, BC | END 2020-10-28 11:32 | disposition home or self-care (01) | LOC: DTY/OP 11:31 | PROVIDERS: ATTEND Family Medicine | DX: E11.40 Type 2 diabetes mellitus with diabetic neuropathy, unspecified (principal) | CPT/HCPCS: 97802 ==

== ENCOUNTER 2021-07-16 14:30 | Outpatient (CLI) | payer MEDICARE, BC ==
[2021-07-16 15:51] LABS: Hemoglobin 10.5 g/dL (13.5-17.5); Mean Corpuscular HGB CONC 29.7 g/dL (32.0-36.0); Mean Corpuscular Hemoglobin 29.3 pg (27.0-33.0); Mean Corpuscular Volume 98.9 fl (81.2-95.1); Mean Platelet Volume 10.6 fl (7.4-10.4); Platelet Count 111 10x3/uL (150-450); RBC Distribution Width 15.3 % (11.5-14.5); Red Blood Cell (RBC) Count 3.58 10x6/uL (4.32-5.72); White Blood Cell (WBC) Count 3.2 10x3/uL (3.5-10.5)
[2021-07-16 15:57] LABS: INR-International Normal Ratio 1.1; Prothrombin Time 11.6 sec (9.5-12.1)
[2021-07-16 16:01] LABS: Anion Gap 14 mmol/L (10-20); BUN (Urea Nitrogen) 45 mg/dL (8.4-25.7); Calc. Creatinine Clearance 0 mL/min (70-130); Carbon Dioxide 36 mmol/L (23-31); Chloride 99 mmol/L (98-107); Glucose 93 mg/dL (83-110); Sodium 144 mmol/L (136-145)
[2021-07-16 23:15] LABS: SARS-CoV-2 PCR by NAA DETECTED (NotDetected)
== END 2021-07-16 14:31 | disposition home or self-care (01) ==
LOC: LABBT 14:30
PROVIDERS: ATTEND Internal Medicine Cardiovascular Disease
DX: Z01.812 Encounter for preprocedural laboratory examination (principal); U07.1 COVID-19
CPT/HCPCS: 80048; 85027; 85610; 85730; U0003; U0005

== ENCOUNTER 2022-03-24 10:29 | Outpatient (CLI) | payer OTHER | END 2022-03-24 10:30 | disposition home or self-care (01) | LOC: DTY/OP 10:29 | PROVIDERS: ATTEND Family Medicine | DX: E66.01 Morbid (severe) obesity due to excess calories (principal); Z71.3 Dietary counseling and surveillance; Z68.41 Body mass index [BMI] 40.0-44.9, adult | CPT/HCPCS: 97802 ==